=== PATIENT | male | born 1960 | race Caucasian/White ===

== ENCOUNTER 2017-09-28 09:31 | Emergency (ER) | payer SELFPAY ==
[~2017-09-28] VITALS: Ht 177.8 cm; Wt 88.3 kg
[~2017-09-28 09:31] MED LIST: COREG25 M1 PO; CRESTOR40 MG PO; GLUCOPHAGE1000 MG PO; HYDROCHLOROTHIA25 MG PO; JANUVIA100 MG PO; LISINOPRIL40 MG PO; MECLIZINE HCL25 MG PO; SYNTHROID112 MCG PO; TRAMADOL HCL50 MG PO; ZOFRAN4 MG PO
[2017-09-28 10:31] LABS: BASOPHIL (%) 0.2 % (0-1); EOSINOPHIL (%) 2.2 % (0-5); EOSINOPHIL COUNT 0.2 K/uL (0-0.3); HEMATOCRIT 41.2 % (38.0-50.0); HEMOGLOBIN 13.5 G/DL (12.5-16.6); IMMATURE GRANULOCYTE (%) 0.3 % (0.0-0.7); LYMPHOCYTE (%) 15.4 % (15-42); LYMPHOCYTE COUNT 1.5 K/uL (1.0-2.8); MCH 27.1 PG (29.0-34.0); MCHC 32.8 G/DL (30.0-36.0); MCV 82.6 FL (86-99); MONOCYTE (%) 6.3 % (3-12); MONOCYTE COUNT 0.6 K/uL (0-0.8); NEUTROPHIL (%) 75.6 % (45-76); NEUTROPHIL COUNT 7.3 K/uL (1.8-6.4); PLATELET COUNT 161 K/uL (156-360); RBC DIS.WIDTH-SD 42.3 % (39-53); RED BLOOD COUNT 4.99 M/uL (4.00-5.50); WHITE BLOOD COUNT 9.7 K/uL (4.1-10.2)
[2017-09-28 10:42] LABS: CHLORIDE 103 mEq/L (99-109); POTASSIUM 4.5 mEq/L (3.7-5.4); SODIUM 136 mEq/L (136-147)
[2017-09-28 10:43] LABS: GLUCOSE 231 mg/dL (70-99)
[2017-09-28 10:47] LABS: CREATININE 0.8 mg/dL (0.6-1.3); GFR ESTIMATE (CALCULATED) > 59 mL/min/ (58.99-99999)
[2017-09-28 10:48] LABS: UREA NITROGEN (BUN) 10 mg/dL (9-23)
[2017-09-28] MEDS ORDERED: CLEOCIN300 MG PO (11:40)
[2017-09-28] MEDS ORDERED: TYLENOL WITH C1 EACH PO (12:15)
[2017-09-28 13:04] VITALS: BP 161/81
== END 2017-09-28 13:05 | disposition home or self-care (01) ==
LOC: EME 09:31
PROVIDERS: Emergency Medicine
DX: L03.116 Cellulitis of left lower limb (principal); E11.9 Type 2 diabetes mellitus without complications; Z79.84 Long term (current) use of oral hypoglycemic drugs; E03.9 Hypothyroidism, unspecified; E78.5 Hyperlipidemia, unspecified; I10 Essential (primary) hypertension; L40.9 Psoriasis, unspecified; Z95.1 Presence of aortocoronary bypass graft; Z87.891 Personal history of nicotine dependence
CPT/HCPCS: 73630; 80048; 85025; 99281; 99284

== ENCOUNTER 2017-10-17 01:26 | Emergency (ER) | payer SELFPAY ==
[~2017-10-17 01:26] MED LIST changes: +CLEOCIN300 MG PO; +TYLENOL WITH C1 EACH PO
[2017-10-17 01:54] LABS: HEMATOCRIT 45.9 % (38.0-50.0); HEMOGLOBIN 14.1 G/DL (12.5-16.6); MCH 27.5 PG (29.0-34.0); MCHC 30.7 G/DL (30.0-36.0); NRBC (%) 1.1 /100 WBC (0-0); RBC DIS.WIDTH-CV 14.6 % (11.8-14.6); RBC DIS.WIDTH-SD 48.5 % (39-53); RED BLOOD COUNT 5.13 M/uL (4.00-5.50); WHITE BLOOD COUNT 8.5 K/uL (4.1-10.2)
[2017-10-17 01:58] LABS: AMYLASE 76 IU/L (1-118); CHLORIDE 104 mEq/L (99-109); POTASSIUM 2.8 mEq/L (3.7-5.4); SODIUM 141 mEq/L (136-147)
[2017-10-17 01:59] LABS: GLUCOSE 367 mg/dL (70-99)
[2017-10-17 02:02] LABS: SERUM ETHYL ALCOHOL < 10 mg/dL
[2017-10-17 02:03] LABS: CREATININE 1.1 mg/dL (0.6-1.3); GFR ESTIMATE (CALCULATED) > 59 mL/min/ (58.99-99999)
[2017-10-17 02:04] LABS: UREA NITROGEN (BUN) 10 mg/dL (9-23)
[2017-10-17 02:06] LABS: LIPASE 75 U/L (1.0-51.0)
[2017-10-17 02:08] LABS: TROP-I INTERPRETATION NEGATIVE; TROPONIN-I 0.02 ng/mL (0.0-0.30)
[2017-10-17 02:29] LABS: MCV 89.5 FL (86-99)
[2017-10-17 02:36] LABS: ABS NEUTROPHIL COUNT 2.9; ANISOCYTOSIS 1+; ATYPICAL LYMPHOCYTE 20.2 %; BAND NEUTROPHILS 5.5 % (0-8.0); EOSINOPHIL ABS CT 0.3; EOSINOPHILS 3.7 % (0-5.0); HYPOCHROMASIA 1+; LYMPHOCYTES 38.5 % (15.0-45.0); MACROCYTES 1+; METAMYELOCYTES 0.9 %; MONOCYTES 2.8 % (0-9.0); PLAT.SUFFICIENCY DECREASED; PLATELET COUNT 112 K/uL (156-360); POIKILOCYTOSIS 1+; SEG.NEUTROPHILS 28.4 % (46.0-76.0)
[2017-10-17 02:40] LABS: PTT 37.4 SEC (25-37)
== END 2017-10-17 05:52 ==
LOC: EDBD 01:26 → EME 01:26
PROVIDERS: Emergency Medicine
PROC: 5A2204Z Restoration of Cardiac Rhythm, Single (ICD-10-PCS; principal; 2017-10-17)
DX: I46.9 Cardiac arrest, cause unspecified (principal); I49.01 Ventricular fibrillation
CPT/HCPCS: 80047; 80048; 81003; 82150; 83605; 83690; 84484; 85025; 85610; 85730; 86850; 86900; 86901; 87040; 94799; 99281; 99285; G0480; J0282; J2310; J3475